=== PATIENT | female | born 1940 | race Caucasian/White ===

== ENCOUNTER → 2019-06-02 13:40 | Outpatient (CLI) | payer MEDICARE, OTHER, SELFPAY | PROVIDERS: Family Provider Family Medicine; PCP Family Medicine; Visit Provider Podiatrist Primary Podiatric Medicine | DX: S81.802A Unspecified open wound, left lower leg, initial encounter (principal); I73.9 Peripheral vascular disease, unspecified; R60.0 Localized edema | CPT/HCPCS: 11043; 99203; 99213 ==

== ENCOUNTER → 2019-06-09 15:25 | Outpatient (CLI) | payer MEDICARE, OTHER, SELFPAY | PROVIDERS: Family Provider Family Medicine; PCP Family Medicine; Visit Provider Podiatrist Primary Podiatric Medicine | DX: S81.802A Unspecified open wound, left lower leg, initial encounter (principal); L90.9 Atrophic disorder of skin, unspecified | CPT/HCPCS: 11042 ==

== ENCOUNTER → 2019-06-12 14:24 | Outpatient (CLI) | payer MEDICARE, OTHER, SELFPAY | PROVIDERS: Family Provider Family Medicine; PCP Family Medicine; Visit Provider Family Medicine | DX: S81.802A Unspecified open wound, left lower leg, initial encounter (principal) | CPT/HCPCS: 29581 ==

== ENCOUNTER → 2019-06-16 11:26 | Outpatient (CLI) | payer MEDICARE, OTHER, SELFPAY | PROVIDERS: Family Provider Family Medicine; PCP Family Medicine; Visit Provider Podiatrist Primary Podiatric Medicine | DX: I87.2 Venous insufficiency (chronic) (peripheral) (principal); I70.293 Other atherosclerosis of native arteries of extremities, bilateral legs; S81.802A Unspecified open wound, left lower leg, initial encounter | CPT/HCPCS: 29581; 99213 ==

== ENCOUNTER → 2019-06-23 09:25 | Outpatient (CLI) | payer MEDICARE, OTHER, SELFPAY | PROVIDERS: Family Provider Family Medicine; PCP Family Medicine; Visit Provider Podiatrist Primary Podiatric Medicine | DX: I87.2 Venous insufficiency (chronic) (peripheral) (principal); S81.802A Unspecified open wound, left lower leg, initial encounter; L90.9 Atrophic disorder of skin, unspecified; R60.0 Localized edema | CPT/HCPCS: 15271; Q4196 ==

== ENCOUNTER → 2019-06-30 14:35 | Outpatient (CLI) | payer MEDICARE, OTHER, SELFPAY | PROVIDERS: Family Provider Family Medicine; PCP Family Medicine; Visit Provider Podiatrist Primary Podiatric Medicine | DX: L90.9 Atrophic disorder of skin, unspecified (principal); S81.802A Unspecified open wound, left lower leg, initial encounter | CPT/HCPCS: 15271; Q4196 ==

== ENCOUNTER → 2019-07-07 09:13 | Outpatient (CLI) | payer MEDICARE, OTHER, SELFPAY | PROVIDERS: Family Provider Family Medicine; PCP Family Medicine; Visit Provider Podiatrist Primary Podiatric Medicine | DX: I87.2 Venous insufficiency (chronic) (peripheral) (principal); I70.293 Other atherosclerosis of native arteries of extremities, bilateral legs; S81.802A Unspecified open wound, left lower leg, initial encounter; R60.0 Localized edema; L90.9 Atrophic disorder of skin, unspecified | CPT/HCPCS: 15271; Q4196 ==